=== PATIENT | male | born 1955 ===

== ENCOUNTER 2020-11-28 12:28 | Emergency (ER) | payer SELFPAY ==
[2020-11-28 12:44] VITALS: BP 148/74; PULSE 66; RESP 18; TEMP 36.9; O2SAT 99
--- NOTE | 2020-11-28 12:55 | ED.EYEPROB ---
HPI - Eye Problem General Chief complaint: Eye Problems Stated complaint: Lt Eye Time Seen by Provider: 11/28/20 12:50 Source: patient and RN notes reviewed Mode of arrival: ambulatory Limitations: language barrier (Patient's language of origin is Lithuanian, moderate Kazakh spoken.) History of Present Illness HPI Narrative: 65-year-old male presents with concern for accidentally putting superglue in his left eye overnight. Reports he thought he was using eyedrops, when he actually was using superglue. Reports he wiped the glue out of his eye. 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 He denies vision changes, reports pain and watery drainage. MD chief complaint: eye pain and other Related Data Allergies Allergy/AdvReac Type Severity Reaction Status Date / Time No Known Allergies Allergy Verified 11/28/20 12:47 Review of Systems Review of Systems: CONSTITUTIONAL: Denies malaise, chills, sweats, or fever. EYES: Denies visual changes. Reports left eye redness, pain, watery discharge. ENT: Denies rhinorrhea, congestion SKIN: Denies rash or itching. Reports irritation on the left upper eyelid MUSCULOSKELETAL: Denies back pain, joint pain, or myalgia. All systems reviewed & are unremarkable except as noted in HPI and below PMFSH Comments At time of signature, agree with nursing past medical, surgical, social and family history. There is no relevant family history pertinent to the presenting complaint Exam Narrative: GENERAL: Well-appearing, well-nourished, and in no acute distress. HEAD: Normocephalic, atraumatic. EYES: PERRLA, right sclera and conjunctivae clear, and EOMI. No nystagmus. Left sclera and conjunctive injected, upper eyelashes missing, eyelid irritation, corneal irritation noted upon Linn lamp exam, see note ENT: Nares clear. Mucous membranes moist. NECK: Supple. CHEST: No respiratory distress. Speaks in full sentences. HEART: Regular rate and rhythm. SKIN: Warm, dry left upper eyelid erythema NEURO: Alert and oriented x3. PSYCH: Normal mood and affect Course Course Emergency Course: Contacted [facility], [facility], and efforts to facilitate patient seeing an decker operator today. Neither were able to find an appointment for the patient. 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 Patient advised to continue to try to get an appointment with an decker operator, if he is unable to see an decker operator he should go to the emergency room. Patient is aware of diagnosis, understands and agrees to treatment plan. Anticipatory guidance given. Patient agrees to follow-up as directed and is aware of reasons to seek care at the emergency department. Portions of this record may have been created with voice recognition software Vital Signs Vital signs: Vital Signs Temperature 98.5 F 11/28/20 12:44 Pulse Rate 66 11/28/20 12:44 Respiratory Rate 18 11/28/20 12:44 Blood Pressure 148/74 H 11/28/20 12:44 Pulse Oximetry 99 11/28/20 12:44 Temperature 98.5 F 11/28/20 12:44 Pulse Rate 66 11/28/20 12:44 Respiratory Rate 18 11/28/20 12:44 Blood Pressure 148/74 H 11/28/20 12:44 Pulse Oximetry 99 11/28/20 12:44 Reviewed. Pt has been instructed to follow up with his primary care provider within the next week regarding his elevated blood pressure today. Procedures Other Procedure Procedure 1: Other Procedure: Tetracaine 1 gtt instilled in left eye, fluorescein stain applied. Corneal irritation noted upon linn lamp exam at approximately 5 o'clock in relation to the pupil. Eye washed with NS 100 ml. No foreign bodies or Nati sign noted. MDM - Eye Problem MDM Narrative Medical decision making narrative: Consideration of the following conditions may be warranted for the presenting problem, they are not final diagnoses: Bacterial conjunctivitis, allergic conjuncti
== END 2020-11-28 14:27 | disposition home or self-care (01) ==
PROVIDERS: Emergency Provider Nurse Practitioner
DX: Z77.098 Contact with and (suspected) exposure to other hazardous, chiefly nonmedicinal, chemicals (principal)
CPT/HCPCS: 99203; A9270; G0463